=== PATIENT | female | born 2000 | race Caucasian/White ===

== ENCOUNTER 2019-03-15 13:12 | Emergency (ER) | payer OTHER, MEDICAID ==
[~2019-03-15] VITALS: Ht 162.6 cm; Wt 47.0 kg
[~2019-03-15 13:12] MED LIST: ALBU8.5H5 INH; APIX5TAB PO
[2019-03-15 13:43] VITALS: BP 131/83
--- NOTE | 2019-03-15 13:58 | NUR ---
Pt resting on [employer] using cell phone. NADN. No needs expressed.
[2019-03-15] MEDS ORDERED: KETOROLAC 30 MG/1 ML ONE (14:10)
[2019-03-15 14:29] LABS: BASOPHILS # (AUTO) 0.02 x10^3/uL (0-0.3); BASOPHILS % (AUTO) 0 % (0-1); EOSINOPHILS # (AUTO) 0.21 x10^3/uL (0-0.8); EOSINOPHILS % (AUTO) 3 % (1-7); LYMPHOCYTES # (AUTO) 1.88 x10^3/uL (1-6.1); LYMPHOCYTES % (AUTO) 27 % (22-44); MD NO; MEAN CORPUSCULAR HEMOGLOBIN 29.6 pg (27.0-34.8); MEAN CORPUSCULAR HGB CONC 33.1 g/dL (32.4-35.8); MEAN CORPUSCULAR VOLUME 89.3 fL (80-100); MEAN PLATELET VOLUME 7.5 fL (7.4-10.4); MONOCYTES # (AUTO) 0.37 x10^3/uL (0-1.4); MONOCYTES % (AUTO) 6 % (2-9); NEUTROPHILS # (AUTO) 4.38 x10^3/uL (1.8-8.0); NEUTROPHILS % (AUTO) 64 % (42-75); PLATELET COUNT 403 x10^3/uL (130-400); RED BLOOD COUNT 5.32 x10^6/uL (3.82-5.3); RED CELL DISTRIBUTION WIDTH 12.3 % (9.6-15.2)
[2019-03-15] MEDS ORDERED: KETOROLAC 30 MG/1 ML IVPush ONE (14:30)
[2019-03-15] MEDS ORDERED: SODIUM CHLORIDE FLUSH 10ML SYR IVF ONE (14:30)
[2019-03-15 14:41] LABS: ANION GAP 6 mmol/L (5-15); CALCIUM 9.2 mg/dL (8.5-10.1); CHLORIDE 103 mmol/L (98-107); CREATININE 0.76 mg/dL (0.55-1.02)
[2019-03-15 14:42] LABS: ALBUMIN 4.2 g/dL (3.4-5.0)
[2019-03-15 14:45] LABS: TROPONIN I < 0.015 ng/mL (0.000-0.045)
--- NOTE | 2019-03-15 16:14 | NUR ---
Patient given discharge instructions and they have confirmed that they understand the instructions. Patient ambulatory with steady gait.
== END 2019-03-15 16:18 | disposition home or self-care (01) ==
LOC: ED 16:02
DX: R07.2 Precordial pain (principal); R07.1 Chest pain on breathing; J45.909 Unspecified asthma, uncomplicated
CPT/HCPCS: 36415; 71046; 80048; 82040; 83880; 84484; 85025; 93005; 96374; 99284; J1885

== ENCOUNTER 2019-05-19 18:08 | Emergency (ER) | payer MEDICAID, OTHER ==
[~2019-05-19] VITALS: Ht 162.6 cm; Wt 46.3 kg
[2019-05-19] MEDS ORDERED: ONDANSETRON ODT 4 MG ONE (20:13)
[2019-05-19] MEDS ORDERED: ONDANSETRON ODT 4 MG PO ONE (20:30)
[2019-05-19 20:43] LABS: BASOPHILS % (AUTO) 0 % (0-1); EOSINOPHILS # (AUTO) 0.12 x10^3/uL (0-0.8); EOSINOPHILS % (AUTO) 2 % (1-7); LYMPHOCYTES # (AUTO) 0.37 x10^3/uL (1-6.1); LYMPHOCYTES % (AUTO) 6 % (22-44); MD NO; MEAN CORPUSCULAR HEMOGLOBIN 29.8 pg (27.0-34.8); MEAN CORPUSCULAR HGB CONC 33.9 g/dL (32.4-35.8); MEAN CORPUSCULAR VOLUME 87.9 fL (80-100); MEAN PLATELET VOLUME 8.4 fL (7.4-10.4); MONOCYTES # (AUTO) 0.29 x10^3/uL (0-1.4); MONOCYTES % (AUTO) 5 % (2-9); NEUTROPHILS # (AUTO) 5.49 x10^3/uL (1.8-8.0); NEUTROPHILS % (AUTO) 88 % (42-75); PLATELET COUNT 243 x10^3/uL (130-400); RED BLOOD COUNT 5.48 x10^6/uL (3.82-5.3); RED CELL DISTRIBUTION WIDTH 13.7 % (9.6-15.2)
--- NOTE | 2019-05-19 20:43 | NUR ---
PT HAS CO OF N/V ABDOMINAL PAIN. PT STATES IT IS CHRONIC, WORSENED TODAY. HX OF PE, ON ELIQUIS MEDICATED W ZOFRAN, GIVEN UA CUP
--- NOTE | 2019-05-19 20:46 | NUR ---
REPORT TO NAHID
[2019-05-19 20:47] LABS: ALANINE AMINOTRANSFERASE 18 U/L (12-78); ALBUMIN 4.3 g/dL (3.4-5.0); ANION GAP 9 mmol/L (5-15); CALCIUM 8.9 mg/dL (8.5-10.1); CHLORIDE 106 mmol/L (98-107); CREATININE 0.97 mg/dL (0.55-1.02)
[2019-05-19 20:52] LABS: ALKALINE PHOSPHATASE 69 U/L (45-117); BILIRUBIN,TOTAL 0.7 mg/dL (0.2-1.0); TOTAL PROTEIN 8.3 g/dL (6.4-8.2)
--- NOTE | 2019-05-19 20:57 | NUR ---
REPORT FROM TAP[facility] PATIENT REPORTS NAUSEA IMPROVED TO 0/10 UA OBTAINED-SENT FOR ANALYSIS
[2019-05-19 21:11] LABS: CULTURE INDICATED? NO; MICROSCOPIC NOT IND
[2019-05-19 21:31] VITALS: BP 115/63
[2019-05-19] MEDS ORDERED: MAALOX/HYOSCYAMINE/LIDOCAINE 45 ML BTL ONE (21:49)
--- NOTE | 2019-05-19 21:56 | NUR ---
MEDICATED PER EMAR-REVIEWED DISCHARGE PLAN
[2019-05-19] MEDS ORDERED: MAALOX/HYOSCYAMINE/LIDOCAINE 45 ML BTL PO ONE (22:00)
== END 2019-05-19 21:58 | disposition home or self-care (01) ==
LOC: ED 21:25
DX: R10.84 Generalized abdominal pain (principal); J45.909 Unspecified asthma, uncomplicated
CPT/HCPCS: 36415; 80053; 81003; 83690; 84703; 85025; 99283; Q0162

== ENCOUNTER 2019-08-27 09:08 | Emergency (ER) | payer OTHER ==
[~2019-08-27] VITALS: Ht 162.6 cm; Wt 48.0 kg
--- NOTE | 2019-08-27 09:22 | NUR ---
Patient ambulated steadily into room, RN to bedside but patient in bathroom. Patient being assessed by midlevel provider at the moment. Awaiting orders.
--- NOTE | 2019-08-27 09:42 | NUR ---
Orders placed by provider, RN to bedside, offer of warm blanket declined. Patient agreeable to point of care finger stick blood glucose. RN then confirmed patient does nto feel the need to use the bathroom as she already emptied her bladder. RN reviewed with provider. Provider is agreeable to patient drinking oral fluids. RN returned with 1 L water and encouraged patient to drink. RN then reviewed clean catch urine instructions. Patient verbalized understanding. Awaiting laboratory processing of blood.
[2019-08-27 09:56] LABS: BASOPHILS # (AUTO) 0.02 x10^3/uL (0-0.3); BASOPHILS % (AUTO) 0 % (0-1); EOSINOPHILS # (AUTO) 0.22 x10^3/uL (0-0.8); EOSINOPHILS % (AUTO) 4 % (1-7); LYMPHOCYTES # (AUTO) 1.71 x10^3/uL (1-6.1); LYMPHOCYTES % (AUTO) 27 % (22-44); MD NO; MEAN CORPUSCULAR HEMOGLOBIN 30.6 pg (27.0-34.8); MEAN CORPUSCULAR HGB CONC 33.7 g/dL (32.4-35.8); MEAN CORPUSCULAR VOLUME 90.8 fL (80-100); MEAN PLATELET VOLUME 7.6 fL (7.4-10.4); MONOCYTES # (AUTO) 0.31 x10^3/uL (0-1.4); MONOCYTES % (AUTO) 5 % (2-9); NEUTROPHILS # (AUTO) 3.99 x10^3/uL (1.8-8.0); NEUTROPHILS % (AUTO) 64 % (42-75); PLATELET COUNT 276 x10^3/uL (130-400); RED BLOOD COUNT 4.65 x10^6/uL (3.82-5.3); RED CELL DISTRIBUTION WIDTH 12.7 % (9.6-15.2)
[2019-08-27 09:59] LABS: ALANINE AMINOTRANSFERASE 17 U/L (12-78); ALBUMIN 4.3 g/dL (3.4-5.0); ANION GAP 7 mmol/L (5-15); CALCIUM 9.5 mg/dL (8.5-10.1); CHLORIDE 109 mmol/L (98-107); CREATININE 1.22 mg/dL (0.55-1.02)
[2019-08-27 10:00] VITALS: BP 101/68
--- NOTE | 2019-08-27 10:01 | NUR ---
RN to bedside, vital signs updated. Attempted to update medicine reconciliation. Patient unable to recall dosage at this time. Patient attempting to access [facility] website for information. Will recheck. Patient now provided warm blanket. Patient still drinking water, awaiting urine sample and laboratory results.
[2019-08-27 10:04] LABS: ALKALINE PHOSPHATASE 63 U/L (45-117); BILIRUBIN,TOTAL 0.3 mg/dL (0.2-1.0); TOTAL PROTEIN 7.9 g/dL (6.4-8.2)
[2019-08-27 10:57] LABS: MICROSCOPIC AUTO
[2019-08-27 10:58] LABS: CULTURE INDICATED? NO
== END 2019-08-27 11:21 | disposition home or self-care (01) ==
LOC: ED 10:25
DX: Z00.00 Encounter for general adult medical examination without abnormal findings (principal); R11.0 Nausea; R53.83 Other fatigue; E16.2 Hypoglycemia, unspecified; J45.909 Unspecified asthma, uncomplicated
CPT/HCPCS: 80053; 81001; 82962; 84703; 85025; 99283

== ENCOUNTER → 2019-11-16 | Outpatient (CLI) | payer OTHER ==
[~2019-11-16] MED LIST changes: +OMNIPAQUE 350 MG/ML, 100ML BOTTLE ONE
== END | disposition home or self-care (01) ==
LOC: CFH 08:58
PROVIDERS: ATTEND Nurse Practitioner Primary Care
DX: I26.99 Other pulmonary embolism without acute cor pulmonale (principal)
CPT/HCPCS: 71275; Q9967

== ENCOUNTER 2020-05-14 14:12 | Emergency (ER) | payer OTHER ==
[~2020-05-14] VITALS: Ht 162.6 cm; Wt 49.0 kg
[~2020-05-14 14:12] MED LIST changes: -OMNIPAQUE 350 MG/ML, 100ML BOTTLE ONE
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
--- NOTE | 2020-05-14 14:35 | NUR ---
ABELINO ZHOU AT BEDSIDE FOR EVALUATION, AWAITING ORDERS
[2020-05-14] MEDS ORDERED: NEOSPORIN OINT. PKT 1 PACKET ONE (14:50)
--- NOTE | 2020-05-14 15:18 | NUR ---
LEFT HAND CLEANSED PER ABELINO ZHOU WITH STERILE SALINE, BACITRACIN AND BANDAGE APPLIED. CMS INTACT. RADIAL PULSE NORMAL AND STRONG. PT GIVEN DISCHARGE INSTRUCTIONS, VERBALIZED UNDERSTANDING, HANDOUTS AND RX IN HAND. AMBULATED TO CHECKOUT DESK WITH STEADY GAIT. PT DECLINED OFFER FOR PAIN MEDICATION IN ER, PROVIDED RX FOR HOME PAIN MGMT BY ABELINO ZHOU.
[2020-05-14 15:20] VITALS: BP 104/66
== END 2020-05-14 15:23 | disposition home or self-care (01) ==
LOC: ED 14:43
DX: S60.572A Other superficial bite of hand of left hand, initial encounter (principal); J45.909 Unspecified asthma, uncomplicated; Z86.711 Personal history of pulmonary embolism; W55.01XA Bitten by cat, initial encounter; Y93.89 Activity, other specified; Y92.098 Other place in other non-institutional residence as the place of occurrence of the external cause; Y99.8 Other external cause status
CPT/HCPCS: 99283